=== PATIENT | male | born 1990 | race Two or more races ===

== ENCOUNTER 2024-11-06 10:20 | Emergency (ER) | payer SELFPAY ==
[2024-11-06] MEDS: Pantoprazole 40 MG Vial IVPUSH ONE (10:35)
[2024-11-06] MEDS: Famotidine 20 MG/2 ML SDV IVPUSH ONE (10:35)
[2024-11-06 10:36] LABS: BASOPHILS PERCENT AUTO 0.7 % (0.0-1.0); EOSINOPHILS ABSOLUTE AUTO 0.1 K/mm3 (0.0-0.4); EOSINOPHILS PERCENT AUTO 1.8 % (0.0-6.0); HEMATOCRIT 44.2 % (42.0-52.0); HEMOGLOBIN 16.1 gm/dl (14.0-18.0); IMMATURE GRAN ABSOLUTE AUTO 0.04 K/mm3 (0.00-0.05); IMMATURE GRAN PERCENT AUTO 0.7 % (0.0-0.4); LYMPHOCYTES ABSOLUTE AUTO 3.1 K/mm3 (1.0-4.8); LYMPHOCYTES PERCENT AUTO 55.2 % (24.0-44.0); MEAN CORPUSCULAR HGB CONC 36.4 g/dl (32.0-36.0); MEAN PLATELET VOLUME 9.6 fl (9.4-12.4); MONOCYTES ABSOLUTE AUTO 0.4 K/mm3 (0.0-0.8); MONOCYTES PERCENT AUTO 6.3 % (0.0-8.0); NEUTROPHILS PERCENT AUTO 35.3 % (41.0-71.0); PLATELET COUNT,PLT 253 K/mm3 (150-400); WHITE BLOOD CELL COUNT,WBC 5.69 K/mm3 (3.9-11.3)
[2024-11-06 10:52] LABS: INR 0.97; PROTHROMBIN TIME 10.3 SECONDS (9.7-12.0)
[2024-11-06 10:57] LABS: D-DIMER QUANTITATIVE < 0.19 mg/L (0.19-0.50)
[2024-11-06] MEDS: ALPRAZolam 1 MG Tab PO ONE (10:57)
[2024-11-06 11:05] LABS: A/G RATIO 1.2 (1-2); ALANINE AMINOTRANSFERASE,ALT 30 U/L (16-63); ALBUMIN 4.2 g/dl (3.4-5.0); ALKALINE PHOSPHATASE 70 U/L (46-116); ANION GAP 15.7 (5-15); ASPARTATE AMNIOTRANSFERASE,AST 15 U/L (15-37); BILIRUBIN TOTAL 0.5 mg/dL (0.2-1.0); BLOOD UREA NITROGEN,BUN 10 mg/dL (7-18); BUN/CREATININE RATIO 11.1 (14-18); CALCIUM 8.7 mg/dL (8.5-10.1); CARBON DIOXIDE,CO2 25 mEq/L (21-32); CHLORIDE,CL 104 mEq/L (98-107); CHOLESTEROL HDL 34 mg/dL (40-59); CHOLESTEROL LDL DIRECT 114 mg/dL (<100); CHOLESTEROL TOTAL 230 mg/dL (<200); CREATINE KINASE,CK 258 U/L (39-308); CREATININE 0.9 mg/dL (0.7-1.3); EST CRCL DRUG DOSING (CG) 93.08 mL/min; ESTIMATED GFR 115 mL/min (>60); LIPASE 28 U/L (16-77); MAGNESIUM 1.9 mg/dL (1.8-2.4); PROTEIN TOTAL,TP 7.7 g/dl (6.4-8.2); SODIUM,NA 141 mEq/L (136-145); TRIGLYCERIDES 617 mg/dL (<150)
[2024-11-06 11:28] LABS: POTASSIUM,K 3.7 mEq/L (3.5-5.1); TROPONIN I HIGH SENSITIVITY < 4 pg/mL (<=76)
[2024-11-06 11:29] LABS: GLUCOSE RANDOM 116 mg/dL (70-99)
== END 2024-11-06 12:50 | disposition home or self-care (01) ==
LOC: JD.ED 10:20
DX: K21.9 Gastro-esophageal reflux disease without esophagitis (principal); E78.5 Hyperlipidemia, unspecified; F41.9 Anxiety disorder, unspecified; R07.89 Other chest pain; I10 Essential (primary) hypertension; Z88.6 Allergy status to analgesic agent; Z79.899 Other long term (current) drug therapy
CPT/HCPCS: 36415; 71045; 80053; 80061; 80307; 82550; 83036; 83690; 83735; 84484; 85025; 85379; 85610; 93005; 96374; 96375; 99285; A9270; J2470; 93010; 99283